=== PATIENT | male | born 1955 | race Caucasian/White ===

== ENCOUNTER 2018-03-24 09:21 | Outpatient (CLI) | payer OTHER | END 2018-03-24 09:22 | disposition home or self-care (01) | LOC: SONOGRAMA 09:21 | DX: S46.002A Unspecified injury of muscle(s) and tendon(s) of the rotator cuff of left shoulder, initial encounter (principal); M25.512 Pain in left shoulder ==

== ENCOUNTER 2025-06-15 06:00 | Day surgery (SDC) | payer OTHER ==
[2025-06-08 08:58] VITALS: BP 160/90
[2025-06-08 09:27] LABS: BASO % 0.6 % (0.1-1.2); EOS # 0.23 (0.04-0.54); EOS % 3.2 % (0.7-7.0); LYMPH # 1.64 (1.18-3.74); LYMPH % 22.7 % (19.3-53.1); MEAN PLATELET VOLUME 10.50 fl (9.4-12.4); MONO # 0.53 (0.24-0.82); MONO % 7.3 % (4.7-12.5); NEUT # 4.77 (1.56-6.13); NEUT % 65.9 % (34.0-71.1); RED CELL DISTRIBUTION WIDTH 13.8 % (11.6-14.4)
[2025-06-08 09:35] LABS: URINE APPEARANCE Clear; URINE BILIRRUBIN Negative (NEGATIVE); URINE BLOOD Negative; URINE COLOR Yellow; URINE GLUCOSE Negative (NEGATIVE); URINE KETONE Negative (NEGATIVE); URINE LEUKOCYTE Negative; URINE NITRATE Negative; URINE UROBILINOGEN 0.2 E.U./dl
[2025-06-08 09:37] LABS: URINE RBC 8.2 uL (0.0-20.8)
[2025-06-08 09:44] LABS: URINE BACTERIA 3.5 uL (0.0-1933); URINE CAST 0.00 uL (0.0-1.40); URINE EPITHELIAL CELLS 0.7 uL (0.0-38.8); URINE PROTEIN 100 (NEGATIVE); URINE WBC 0.9 uL (0.0-23.2)
[2025-06-08 09:52] LABS: INR 0.98
[2025-06-08 10:15] LABS: ALT/SGPT 61.0 U/L (12-78); AST/SGOT 39.0 U/L (15-37); BILIRUBIN TOTAL 0.52 mg/dL (0.3-1.2); BUN CREA RATIO 20.0 (7.0-25.0); CREATININE SERUM 0.81 mg/dL (0.70-1.30); GFR 94.76; GLOBULINA 3.8 G/DL (2.4-3.5); GLUCOSE FASTING 110.0 mg/dL (65-100); OSMOLALITY SERUM 285.0 MOSM/KG (275-295)
[~2025-06-15] VITALS: Ht 167.6 cm; Wt 88.5 kg
[~2025-06-15 06:00] MED LIST: IRBESARTAN75 MG PO; NORVASC2.5 M1 PO; PROTONIX40 MG PO
[2025-06-15] MEDS ORDERED: METRONIDAZOLE/SODIUM CHLORIDE 500 MG/100 ML PIGGYBACK IV ONE (06:49)
[2025-06-15] MEDS ORDERED: CEFTRIAXONE SODIUM 2,000 MG VIAL ONE (06:49)
[2025-06-15] MEDS ORDERED: LIDOCAINE HCL 1%/EPINEPHRINE 20ML VIAL IJ ONE (08:15)
[2025-06-15] MEDS ORDERED: BUPIVACAINE HCL 30 ML VIAL IJ ONE (08:15)
[2025-06-15] MEDS ORDERED: DIBUCAINE 30 GM TUBE RECTAL ONE (08:15)
[2025-06-15] MEDS ORDERED: HEMOSTATIC MATRIX 1 KIT KIT TOP ONE (08:15)
[2025-06-15] MEDS ORDERED: POVIDONE-IODINE 118 ML BOTT TOP ONE (08:15)
[2025-06-15] MEDS ORDERED: INTESTINEX680 M1 PO (11:30)
[2025-06-15] MEDS ORDERED: PERCOCET 5-3251 EACH PO (11:30)
[2025-06-15] MEDS ORDERED: NEURONTIN300 MG PO (11:30)
[2025-06-15] MEDS ORDERED: CELECOXIB200 MG PO (11:31)
== END 2025-06-15 14:20 | disposition home or self-care (01) ==
LOC: CIR.AMB 06:00
PROVIDERS: ATTEND Surgery
DX: K64.2 Third degree hemorrhoids (principal); K64.4 Residual hemorrhoidal skin tags; K62.5 Hemorrhage of anus and rectum